=== PATIENT | female | born 1985 | race Caucasian/White ===

== ENCOUNTER → 2018-10-14 | Outpatient (CLI) | payer MEDICAID ==
[~2018-10-14] MED LIST: AMOX-559 PO; FLUC150T40 PO; HYDR-2966 PO; HYDR12.556 PO; LEVO25TA61 PO; LEVO50TA86 PO; MEDR10TA57 PO
--- NOTE | 2018-10-14 17:05 | RADIOLOGY IMAGING REPORT ---
[place] [facility] [place] NAME: Claudia Rincon : 1985 MR: [id number] V: [id number] EXAM DATE: ORDERING PHYSICIAN: ASAH NUNEZ TECHNOLOGIST: Location: [facility] Patient: Claudia Rincon : 1985 Visit/Account:[id number] Date of Sevice: 10/14/2018 TRANSVAGINAL NON-OB HISTORY: EXCESSIVE AND FREQUENT MENSTRUATION WITH REGULAR CYCLE TECHNIQUE: Transvaginal ultrasound pelvis. COMPARISON: None. FINDINGS: Uterus: Retroverted; 5.7 cm length x 4 cm AP x 5.5 cm transverse. Myometrium: Along the anterior left side of the uterine fundus there is a 2.3 x 2.4 x 4 cm subserosal mass, likely a fibroid. Lung the posterior aspect of the mid uterus is a 1 cm intramural mass likel y an additional fibroid. Endometrium: Slightly limited evaluation due to uterine position; double thickness 7 mm. Cervix: Grossly negative. Ovaries: Right - 3.3 x 2.4 x 3.5 cm Left - 4.7 x 2.8 x 3 cm Blood flow is documented in each ovary by duplex Doppler ultrasound. Adnexa: Grossly unremarkable. Free pelvic fluid: None. IMPRESSION: Two uterine masses likely representing fibroids as described above. The largest is anterior and subs erosal measuring 4 cm in diameter. Report Dictated By: Nuria De La Vega MD at 10/14/2018 4:56 PM Report E-Signed By: Nuria De La Vega MD at 10/14/2018 4:59 PM WSN:[email or web address]
== END ==
LOC: US 14:48
PROVIDERS: ATTEND Obstetrics & Gynecology
DX: N92.0 Excessive and frequent menstruation with regular cycle (principal); N85.8 Other specified noninflammatory disorders of uterus
CPT/HCPCS: 76830

== ENCOUNTER → 2018-10-30 | Outpatient (CLI) | payer MEDICAID ==
[~2018-10-30] MED LIST changes: +CLIN300C99 PO
[2018-10-30 06:51] LABS: PLATELET COUNT, AUTOMATED 259 K/uL (150-450)
[2018-10-30 07:29] LABS: LDL CHOLESTEROL 84 mg/dl
== END ==
LOC: LAB 06:37
PROVIDERS: ATTEND Emergency Medicine
DX: E03.9 Hypothyroidism, unspecified (principal); I10 Essential (primary) hypertension; M10.9 Gout, unspecified
CPT/HCPCS: 36415; 81001; 82040; 82247; 82310; 82374; 82435; 82465; 82565; 82947; 83718; 84075; 84132; 84155; 84295; 84439; 84443; 84450; 84460; 84478; 84520; 84550; 85025